=== PATIENT | female | born 1955 | race Caucasian/White ===

== ENCOUNTER → 2017-12-09 | Outpatient (CLI) | payer MEDICARE, MEDICAID ==
[~2017-12-09] MED LIST: AMITRIPTYLINE H25 M2 PO; ATENOLOL 100MG100 MG PO; CIMETIDINE800 MG PO; EXCEDRIN CAPLE1 EACH PO; OMEPRAZOLE40 MG PO; PRAVACHOL20 MG PO; ZANTAC 150MG T150 MG PO
== END ==
LOC: M.RAD 10:00
DX: D05.12 Intraductal carcinoma in situ of left breast (principal); R92.2 Inconclusive mammogram

== ENCOUNTER 2018-11-08 14:47 | Emergency (ER) | payer MEDICARE, MEDICAID ==
[~2018-11-08] VITALS: Ht 162.6 cm; Wt 125.7 kg
[2018-11-08] MEDS ORDERED: MYRBETRIQ25 MG PO (15:02)
[2018-11-08] MEDS ORDERED: NORCO 5-325 TA1 EAC1 PO (16:23)
[2018-11-08 17:17] VITALS: BP 137/92
== END 2018-11-08 17:17 | disposition home or self-care (01) ==
LOC: M.ERS 14:47
DX: M13.841 Other specified arthritis, right hand (principal); M81.0 Age-related osteoporosis without current pathological fracture; M13.842 Other specified arthritis, left hand; I10 Essential (primary) hypertension; Z85.3 Personal history of malignant neoplasm of breast

== ENCOUNTER → 2018-12-07 | Outpatient (CLI) | payer MEDICARE, MEDICAID ==
[~2018-12-07] MED LIST changes: +MYRBETRIQ25 MG PO; +NORCO 5-325 TA1 EAC1 PO
== END ==
LOC: M.RAD 13:34
DX: D05.12 Intraductal carcinoma in situ of left breast (principal)

== ENCOUNTER → 2019-05-03 | Outpatient (CLI) | payer MEDICARE, MEDICAID | LOC: M.CT 11:00 → M.MRI 14:05 | DX: Z82.49 Family history of ischemic heart disease and other diseases of the circulatory system (principal) ==

== ENCOUNTER → 2019-11-08 | Outpatient (CLI) | payer MEDICARE, MEDICAID | LOC: M.MRI 17:05 | PROVIDERS: ATTEND Family Medicine | DX: M51.25 Other intervertebral disc displacement, thoracolumbar region (principal); M47.816 Spondylosis without myelopathy or radiculopathy, lumbar region; M43.17 Spondylolisthesis, lumbosacral region ==

== ENCOUNTER → 2019-12-10 | Outpatient (CLI) | payer MEDICARE, MEDICAID | LOC: M.RAD 10:40 | PROVIDERS: ATTEND Internal Medicine Hematology & Oncology | DX: Z12.31 Encounter for screening mammogram for malignant neoplasm of breast (principal) ==

== ENCOUNTER → 2020-08-08 | Outpatient (CLI) | payer MEDICARE, MEDICAID | LOC: M.ULTRA 13:53 | PROVIDERS: ATTEND Internal Medicine Hematology & Oncology | DX: M85.851 Other specified disorders of bone density and structure, right thigh (principal); M49.8 Spondylopathy in diseases classified elsewhere ==

== ENCOUNTER → 2020-08-22 | Outpatient (CLI) | payer MEDICARE, MEDICAID | LOC: M.NUC 08-20 11:26 | PROVIDERS: ATTEND Internal Medicine Hematology & Oncology | DX: D05.12 Intraductal carcinoma in situ of left breast (principal) ==

== ENCOUNTER → 2020-09-19 | Outpatient (CLI) | payer MEDICARE, MEDICAID | LOC: M.RAD 15:11 | PROVIDERS: ATTEND Internal Medicine Hematology & Oncology | DX: D05.12 Intraductal carcinoma in situ of left breast (principal); R93.89 Abnormal findings on diagnostic imaging of other specified body structures ==

== ENCOUNTER → 2020-12-11 | Outpatient (CLI) | payer MEDICARE, MEDICAID | LOC: M.RAD 10:53 | PROVIDERS: ATTEND Internal Medicine Hematology & Oncology | DX: Z12.31 Encounter for screening mammogram for malignant neoplasm of breast (principal) ==